=== PATIENT | male | born 1955 | race Caucasian/White ===

== ENCOUNTER 2024-01-29 06:13 | Day surgery (SDC) | payer MEDICARE, OTHER, SELFPAY ==
[2024-01-29 06:56] VITALS: BMI 23.4
[2024-01-29 06:57] VITALS: BMI 23.4
[2024-01-29 06:59] VITALS: BP 138/80
[2024-01-29 10:00] VITALS: BP 125/76
[2024-01-29 10:15] VITALS: BP 155/73
[2024-01-29 10:30] VITALS: BP 136/66
== END 2024-01-29 10:40 | disposition home or self-care (01) ==
LOC: GI 06:13
PROVIDERS: ATTENDING PHYSICIAN Internal Medicine Gastroenterology
DX: D12.3 Benign neoplasm of transverse colon (principal); D12.5 Benign neoplasm of sigmoid colon; K63.5 Polyp of colon; K57.30 Diverticulosis of large intestine without perforation or abscess without bleeding; Q43.8 Other specified congenital malformations of intestine; K64.0 First degree hemorrhoids; R93.3 Abnormal findings on diagnostic imaging of other parts of digestive tract
CPT/HCPCS: 45386; 45385; 88305; C1726

== ENCOUNTER → 2024-01-31 08:07 | Outpatient (REF) | payer MEDICARE, OTHER, SELFPAY | LOC: HWRAD 08:07 | PROVIDERS: ATTENDING PHYSICIAN Family Medicine | DX: Z87.891 Personal history of nicotine dependence (principal) | CPT/HCPCS: 71271 ==

== ENCOUNTER → 2025-09-30 11:21 | Outpatient (REF) | payer MEDICARE, OTHER, SELFPAY | LOC: HWRAD 11:21 | PROVIDERS: ATTENDING PHYSICIAN Family Medicine | DX: M79.671 Pain in right foot (principal) | CPT/HCPCS: 73630 ==

== ENCOUNTER → 2025-10-20 08:25 | Outpatient (REF) | payer MEDICARE, OTHER, SELFPAY | LOC: RAD 08:25 | PROVIDERS: ATTENDING PHYSICIAN Family Medicine | DX: I10 Essential (primary) hypertension (principal) | CPT/HCPCS: 93975 ==